=== PATIENT | male | born 1955 | race Caucasian/White ===

== ENCOUNTER 2020-05-29 12:56 | Emergency (ER) | payer SELFPAY ==
--- NOTE | 2020-05-29 13:41 | RAD ---
PORTABLE CHEST: Date: 05/29/2020 PROVIDED CLINICAL HISTORY: Dyspnea. FINDINGS: The cardiac silhouette appears enlarged, which may be at least partially on the basis of portable nik hnique. Diffuse prominence of the pulmonary interstitium, without focal consolidation, pleural fluid, or pneumothorax. IMPRESSION: Nonspecific prominence of the pulmonary interstitium. POS: TOM
== END 2020-05-29 13:50 | disposition home or self-care (01) ==
LOC: NAV ERS 12:56
DX: U07.1 COVID-19 (principal); F17.220 Nicotine dependence, chewing tobacco, uncomplicated
CPT/HCPCS: 71045